=== PATIENT | male | born 1985 | race Caucasian/White ===

== ENCOUNTER 2017-03-25 23:23 | Emergency (ER) | payer SELFPAY ==
[~2017-03-25] VITALS: Ht 177.8 cm; Wt 100.0 kg
[2017-03-25 23:26] VITALS: Ht 177.8 cm; Wt 100.0 kg
== END 2017-03-26 00:59 | disposition left against medical advice (07) ==
LOC: FTE 23:23
DX: Z53.21 Procedure and treatment not carried out due to patient leaving prior to being seen by health care provider (principal)

== ENCOUNTER 2017-04-12 23:19 | Emergency (ER) | payer OTHER ==
[~2017-04-12] VITALS: Ht 170.2 cm; Wt 99.2 kg
[2017-04-12 23:23] VITALS: Ht 170.2 cm; Wt 99.2 kg
--- NOTE | 2017-04-13 01:06 | ERD ---
ER Documentation Chief Complaint Chief Complaint sp ground level fall left shoulder pain HPI 32 year male patient left shoulder pain, pt reports that he fell tripled and fell threw a table March 02 ROS All systems reviewed and are negative except as per history of present illness. Allergies Allergies: Coded Allergies: Penicillins (Verified Allergy, Unknown, 03/25/17) PMhx/Soc Medical and Surgical Hx: pt denies Medical Hx History of Surgery: Yes (torsion sx correction of L testicle) Anesthesia Reaction: No Hx Alcohol Use: No Hx Substance Use: No Hx Tobacco Use: No Smoking Status: Never smoker Physical Exam Vitals Vital Signs Date Time Temp Pulse Resp B/P Pulse Ox O2 Delivery O2 Flow Rate FiO2 04/12/17 23:23 98.3 79 20 135/88 100 Physical Exam Const: Well-nourished, 32-year-old male patient sleeping on gurney difficult to awake for exam Head: Eyes: ENT: Neck: . Resp: Cardio: Abd: Skin: Back Upper Extremity - bilateral: Skin: No laceration, or evidence of external trauma Compartments: Soft Motor: Full active range of motion shoulder/elbow/wrist/ hand-positive can drop test Sensation: Intact shoulder/pinky/middle finger/thumb web space Bones: Nontender humerus/elbow/forearm/wrist/hand Snuffbox: Nontender Joints: No effusion Pulses/Perfusion: 2+ radial, Capillary refill < 2 seconds Neur: Awake and alert Psych: Normal Mood and Affect Procedures/MDM A 32-year-old male patient presents to emergency department for chronic left shoulder pain, patient reports that he slipped and fell into a table over a month ago, has experienced shoulder pain ever since. Patient denies any change in sensation to fingers or hands. She denies any new injury. Emergency room course includes history and physical exam positive for suspected rotator cuff injury patient will be treated for pain with ibuprofen, placed in a sling, and sent to primary provider for referral to orthopedic consult, he will also get information in discharge regarding suspected condition and graphics for [facility] orthopedic holderness Patient is stable with no new complaints during ER course, clinically there is no current evidence to suggest fractured shoulder, dislocated shoulder, fractured clavicle, neurovascular injury, shoulder separation, or any other emergent condition appearing to require further evaluation or hospitalization. I feel the patient is stable for discharge at this time. I have discussed results, examination findings, the treatment plan with the patient and family present prior to discharge. Indications for emergent reevaluation, side effects of medication were also discussed. All questions were answered. Patient verbalizes understanding and agrees with plan of care. Departure Diagnosis: Primary Impression: Chronic shoulder pain Laterality: left Qualified Code: M25.512 - Chronic left shoulder pain Condition: Good Patient Instructions: Rotator Cuff Tear, Shoulder Pain (Uncertain Cause), Understanding Rotator Cuff Injuries MIMA LEUNG Apr 13, 2017 01:06
[2017-04-13] MEDS ORDERED: IBUP-1542 PO (01:23)
== END 2017-04-13 01:51 | disposition home or self-care (01) ==
LOC: FTE 23:19
DX: M25.512 Pain in left shoulder (principal)
CPT/HCPCS: Z7502; Z7610; 99282

== ENCOUNTER 2017-08-13 21:59 | Emergency (ER) | END 2017-08-14 00:15 | disposition left against medical advice (07) ==